=== PATIENT | male | born 1965 | race Caucasian/White ===

== ENCOUNTER 2020-09-13 12:40 | Observation (INO) | payer OTHER ==
[2020-09-13] MEDS ORDERED: Iopamidol 612 MG/ML 100 ML Bottle IVPUSH ONE (12:59)
[2020-09-13] MEDS ORDERED: Sodium Chloride 0.9% 10 ML Syringe FLUSH PRN (12:59)
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
[2020-09-13] MEDS ORDERED: fentaNYL 100 MCG/2 ML SDV IVPUSH ONE ×4 (13:31→17:46)
--- NOTE | 2020-09-13 13:35 | CT ---
CT chest Technique: Multiple axial sections were obtained from above the lung apices inferiorly through the lung bases. Intravenous contrast was utilized. Reconstructed coronal and sagittal images were obtained. Comparison: No prior chest imaging is available. Findings: Thoracic aorta shows mild artifact but no aneurysm. Minimal atherosclerotic calcification is seen within the aorta. Mediastinum and hilar regions show no adenopathy. No pericardial thickening is seen. Slight esophageal wall thickening is noted distally suspicious for possible change from reflux esophagitis. Lungs are clear with no acute parenchymal change. No pulmonary contusions are seen. Very minimal dependent atelectasis is seen posteriorly within both lung bases. No pneumothorax is seen. Bone window settings were reviewed which show mild scattered end plate spurring within the spine. On the reconstructed sagittal images there is evidence of a fracture within the sternum which appears without significant displacement. No retrosternal soft tissue swelling is seen. Impression: 1. Nondisplaced sternal fracture. No retrosternal soft tissue swelling is seen. 2. Esophageal wall thickening most likely relating to chronic reflux esophagitis. 3. No other acute abnormality is appreciated on CT study of the chest. Diagnostic code #3 CT abdomen and pelvis Technique: Multiple axial sections were obtained from above the dome of the diaphragm inferiorly through the pubic symphysis. Intravenous contrast was utilized. No oral contrast has been given. Reconstructed sagittal and coronal images were obtained. Comparison: No prior abdominal or pelvic imaging is available. Findings: Two very minimal low density lesions are seen within the liver which measure less than 2 mm and are nonspecific but most likely represent minimal cysts. Spleen size is normal. Evidence of previous gastric surgery is noted. Several surgical clips are seen medial to the spleen. Adrenal glands show no nodule. Gallbladder contains no calcified gallstones. Kidneys show symmetric contrast enhancement with no acute finding. Abdominal aorta shows no aneurysm. Pancreas shows no abnormality. No retroperitoneal adenopathy or mesenteric abnormalities are seen. No pelvic mass or adenopathy is seen. Appendix is seen which is normal in size. No bowel dilatation or bowel wall thickening is seen. Bone window settings were reviewed which show mild scattered end plate spurring within the spine with mild scattered apophyseal degenerative change within the lower lumbar spine. Mild vacuum phenomena is noted within the sacroiliac joints. No acute osseous abnormality is appreciated. Impression: 1. Findings as noted above. 2. Nothing acute is appreciated on CT study of the abdomen and pelvis. Diagnostic code #2
[2020-09-13] MEDS ORDERED: Metoprolol Tartrate 5 MG/5 ML SDV IVPUSH ONE (13:41)
[2020-09-13] MEDS: Lactated Ringers 1,000 ML IV SCH (14:01)
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
[2020-09-13] MEDS ORDERED: Polyethylene Glycol 3350 Powder 17 GM Packet PO PRN (17:58)
[2020-09-13] MEDS ORDERED: Ondansetron 4 MG Tab.DIS PO PRN (17:58)
[2020-09-13] MEDS: oxyCODONE 5 MG Tab PO PRN ×2 (18:55→20:45)
[2020-09-13] MEDS: Acetaminophen 325 MG Tab PO SCH (18:56)
[2020-09-13] MEDS: HYDROmorphone 0.5 MG/0.5 ML Syringe IVPUSH PRN (20:45)
[2020-09-14] MEDS: HYDROmorphone 0.5 MG/0.5 ML Syringe IVPUSH PRN (01:07)
[2020-09-14] MEDS: Acetaminophen 325 MG Tab PO SCH ×3 (01:09→11:16)
[2020-09-14] MEDS: Lactated Ringers 1,000 ML IV SCH (01:11)
[2020-09-14] MEDS: oxyCODONE 5 MG Tab PO PRN (05:40)
[2020-09-14] MEDS ORDERED: Enoxaparin 40 MG/0.4 ML Syringe SUBCUT SCH (09:00)
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
== END 2020-09-14 12:55 | disposition home or self-care (01) ==
LOC: JD.ED 12:40 → JD.MS 17:42
PROVIDERS: ADMIT Surgery; ATTEND Surgery
DX: S22.20XA Unspecified fracture of sternum, initial encounter for closed fracture (principal); Z88.0 Allergy status to penicillin; E11.9 Type 2 diabetes mellitus without complications; Z98.84 Bariatric surgery status; Z88.7 Allergy status to serum and vaccine; Z20.822 Contact with and (suspected) exposure to COVID-19; V53.5XXA Driver of pick-up truck or van injured in collision with car, pick-up truck or van in traffic accident, initial encounter
CPT/HCPCS: 36415; 71260; 71260-26; 74177; 74177-26; 80048; 80053; 83735; 84100; 84443; 84484; 85025; 93005; 93010; 94760; 96372; 96374; 96375; 96376; 99284; 99285-25; A9270-GY; G0378; J1170; J1650; J3010; J3490; J7120; Q9967; U0002